=== PATIENT | female | born 1990 | race Caucasian/White ===

== ENCOUNTER 2023-11-08 10:27 | Emergency (ER) | payer OTHER, SELFPAY ==
--- NOTE | 2023-11-08 10:39 | ED.BACK ---
HPI - Back Pain/Injury General Chief Complaint: Back Pain/Injury Stated Complaint: BACK PAIN Time Seen by Provider: 11/08/23 10:40 Source: patient and RN notes reviewed History of Present Illness HPI Narrative: Patient is a 33-year-old female who presents to Urgent Care with her mother with complaints of left mid to upper back pain. Patient states it started 1 week ago. 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 Patient states that a few days ago that she sneezed and felt a pop in her back. Patient also reports that she does have kidney disease and follows up regularly with her doctor. Reports no changes in her kidney labs or issues with her urine output. Patient states that she checks her urine frequently and has had no issues. Patient states that pain increases with movement or twisting motion. No other acute complaints. No acute distress noted. Patient aware of the plan of care. Some parts of this dictation were generated by voice recognition software and may contain typographical and/or grammatical inaccuracies. Related Data Home Medications Medication Instructions Recorded Confirmed ferrous sulfate 325 mg (65 mg 325 mg PO DAILY 11/08/23 11/08/23 iron) tablet folic acid 1 mg tablet 1 mg PO DAILY 11/08/23 11/08/23 levothyroxine 25 mcg tablet 25 mcg PO DAILY 11/08/23 11/08/23 losartan 25 mg tablet 25 mg PO DAILY 11/08/23 11/08/23 Allergies Allergy/AdvReac Type Severity Reaction Status Date / Time No Known Allergies Allergy Verified 11/08/23 10:54 Review of Systems Review of Systems: CONSTITUTIONAL: Denies fever, chills, or sweats. EYES: Denies visual changes, redness, or discharge. ENT: Denies rhinorrhea, congestion, sore throat, or otalgia. CARDIOVASCULAR: Denies chest pain, palpitations, or edema. RESPIRATORY: Denies cough or dyspnea. GASTROINTESTINAL: Denies abdominal pain, nausea, vomiting, or diarrhea. GENITOURINARY: Denies dysuria or hematuria. SKIN: Denies rash or itching. MUSCULOSKELETAL: Reports of mid to upper left back discomfort NEUROLOGIC: Denies headache, numbness, or weakness. All other systems reviewed are negative, except as documented in HPI. [facility] Comments At the time of my signature, I reviewed and agree with the nursing past medical, surgical, social, and family history. There is no relevant family history pertinent to the patient complaint. Exam Narrative: GENERAL: This is a well-nourished, well-developed patient, in no apparent distress. HEAD: normocephalic, atraumatic. EYES: PERRL. Sclera clear/white. Vision is grossly intact. EARS: External ears normal NOSE: External nose normal with no obvious nasal discharge, nares without redness, no rhinorrhea. THROAT: Mucous membranes moist NECK: Neck supple SKIN: warm, intact with no suspicious lesions or rash, good texture and turgor. NEURO: awake, alert, and oriented to person, place and time. There were no obvious focal neurologic abnormalities. EXTREMITIES: No clubbing, cyanosis, or edema. No joint tenderness, effusion, or edema noted. No calf tenderness. Negative Homans sign bilaterally. BACK: Positive right SLE, negative left SLE. Moderate lateral thoracic tenderness to the left back Course Course Level of Care: Express Care Visit Vital Signs Vital signs: Vital Signs Temperature 97.8 F 11/08/23 10:41 Pulse Rate 130 H 11/08/23 10:41 Respiratory Rate 16 11/08/23 10:41 Blood Pressure 169/108 H 11/08/23 10:41 Pulse Oximetry 99 11/08/23 10:41 Temperature 97.8 F 11/08/23 10:43 Pulse Rate 130 H 11/08/23 10:43 Respiratory Rate 16 11/08/23 10:43 Blood Pressure 169/108 H 11/08/23 10:43 Pulse Oximetry 99 11/08/23 10:43 Reviewed- Patient is informed that they may have pre-hypertension or hypertension based on a blood pressure reading in the department. I recommend the patient call the primary care provider listed on their
[2023-11-08 10:41] VITALS: BP 169/108; PULSE 130; RESP 16; TEMP 36.6; O2SAT 99
[2023-11-08 10:43] VITALS: BP 169/108; PULSE 130; RESP 16; TEMP 36.6; O2SAT 99
== END 2023-11-08 11:15 | disposition home or self-care (01) ==
PROVIDERS: Emergency Provider Nurse Practitioner Family; PCP Nurse Practitioner Family
DX: S29.012A Strain of muscle and tendon of back wall of thorax, initial encounter (principal); X58.XXXA Exposure to other specified factors, initial encounter; N28.9 Disorder of kidney and ureter, unspecified; E78.00 Pure hypercholesterolemia, unspecified; I10 Essential (primary) hypertension
CPT/HCPCS: 99213; G0463